=== PATIENT | female | born 1980 | race Caucasian/White ===

== ENCOUNTER 2016-04-16 10:34 | Emergency (ER) | payer OTHER ==
[2016-04-16 11:16] VITALS: BP 150/95
--- NOTE | 2016-04-16 12:34 | UC ---
Throat Pain/Nasal Carlos HPI - HPI Summary HPI Summary: THREE DAYS OF SORE THROAT FEVER, CONGESTION. DAUGHTER RAPID TEST POSITIVE FOR STREP. - History of Current Complaint Chief Complaint: UCRespiratory Stated Complaint: SORE THROAT Time Seen by Provider: 04/16/16 11:28 Hx Obtained From: Patient Hx Last Menstrual Period: 04/09/16 Onset/Duration: Gradual Onset, Lasting Days, Still Present Severity: Moderate Cough: None - Allergies/Home Medications Allergies/Adverse Reactions: Allergies Allergy/AdvReac Type Severity Reaction Status Date / Time No Known Allergies Allergy Verified 04/08/14 15:19 PMH/Surg Hx/FS Hx/Imm Hx Previously Healthy: Yes Endocrine History Of: Denies: Diabetes, Thyroid Disease Cardiovascular History Of: Denies: Cardiac Disorders, Hypertension Respiratory History Of: Denies: COPD, Asthma GI/ History Of: Denies: Ulcer - Surgical History Surgical History: None - Family History Known Family History: Positive: Other - DAUGHTER POSITIVE FOR STREP - Social History Occupation: Unemployed Lives: With Family Alcohol Use: None Substance Use Type: None Smoking Status (MU): Never Smoked Tobacco Review of Systems Constitutional: Fever Skin: Negative Eyes: Negative ENT: Sore Throat, Ear Ache Respiratory: Negative Cardiovascular: Negative Gastrointestinal: Negative Genitourinary: Negative Motor: Negative Neurovascular: Negative Musculoskeletal: Negative Neurological: Negative Psychological: Negative All Other Systems Reviewed And Are Negative: Yes Physical Exam Triage Information Reviewed: Yes Appearance: Well-Appearing, No Pain Distress, Well-Nourished Vital Signs: Initial Vital Signs Temp 99.9 F 04/16/16 11:12 Pulse 91 04/16/16 11:12 Resp 16 04/16/16 11:12 BP 150/95 04/16/16 11:12 Pulse Ox 99 04/16/16 11:12 Vital Signs Reviewed: Yes Eye Exam: Normal ENT: Positive: Hearing grossly normal, Pharyngeal erythema, TMs normal, Tonsillar swelling Dental Exam: Normal Neck exam: Normal Neck: Positive: Supple, Nontender Respiratory Exam: Normal Respiratory: Positive: Chest non-tender, Lungs clear, Normal breath sounds, No respiratory distress, No accessory muscle use Cardiovascular Exam: Normal Cardiovascular: Positive: RRR, No Murmur, Pulses Normal Abdominal Exam: Normal Abdomen Description: Positive: Nontender, No Organomegaly Musculoskeletal Exam: Normal Neurological Exam: Normal Psychological Exam: Normal Skin Exam: Normal Throat Pain/Nasal Course/Dx - Differential Dx/Diagnosis Differential Diagnosis/HQI/PQRI: Pharyngitis, Tonsillitis, URI Provider Diagnoses: TONSILLITIS Discharge - Discharge Plan Condition: Stable Disposition: HOME Prescriptions: Amoxicillin/Clavulanate TAB* [Augmentin TAB 875*] 875 mg PO BID #20 tab Patient Education Materials: Tonsillitis (ED) Referrals: [facility] [Outside] No Primary Care Phys,NOPCP [Primary Care Provider] -
== END 2016-04-16 12:30 | disposition home or self-care (01) ==
LOC: UCEAST 10:34
DX: J03.90 Acute tonsillitis, unspecified (principal)
CPT/HCPCS: 87651; 99212; G0463

== ENCOUNTER 2017-03-29 09:22 | Emergency (ER) | payer OTHER ==
[2017-03-29 09:34] VITALS: BP 138/91
--- NOTE | 2017-03-29 09:35 | UC ---
FLU HPI - HPI Summary HPI Summary: Pt presents with fever, sore throat, body aches, and tiredness that started yesterday. She tells me that two members of her household are sick with similar symptoms over the last few weeks. She has been taking tylenol for her symptoms. Denies cough, SOB, chest pain, abdominal pain, n/v/d/c. - History of Current Complaint Chief Complaint: UCGeneralIllness Stated Complaint: SORE THROAT FEVER CHILLS Time Seen by Provider: 03/29/17 09:35 Hx Obtained From: Patient Hx Last Menstrual Period: 03/10/17 Severity Currently: Moderate Severity Initially: Moderate Pain Intensity: 7 Pain Scale Used: 0-10 Numeric - Allergy/Home Medications Allergies/Adverse Reactions: Allergies Allergy/AdvReac Type Severity Reaction Status Date / Time No Known Allergies Allergy Verified 03/29/17 09:26 Home Medications: Home Medications NK [No Home Medications Reported] 03/29/17 [History Confirmed 03/29/17] PMH/Surg Hx/FS Hx/Imm Hx Previously Healthy: Yes - Surgical History Surgical History: Yes Surgery Procedure, Year, and Place: d/c - Family History Known Family History: Positive: Unknown, Other - DAUGHTER POSITIVE FOR STREP - Social History Occupation: Employed Full-time Lives: With Family Alcohol Use: None Substance Use Type: None Smoking Status (MU): Never Smoked Tobacco Review of Systems Constitutional: Fever, Fatigue, Other - Body aches Skin: Negative Eyes: Negative ENT: Sore Throat Respiratory: Negative Cardiovascular: Negative Gastrointestinal: Negative Neurological: Negative Psychological: Negative All Other Systems Reviewed And Are Negative: Yes Physical Exam Triage Information Reviewed: Yes Appearance: Well-Appearing, No Pain Distress, Well-Nourished Vital Signs: Initial Vital Signs Temp 101.2 F 03/29/17 09:30 Pulse 102 03/29/17 09:30 Resp 20 03/29/17 09:30 BP 138/91 03/29/17 09:30 Pulse Ox 100 03/29/17 09:30 Vital Signs Reviewed: Yes Eyes: Positive: Conjunctiva Clear. Negative: Conjunctiva Inflamed, Discharge ENT: Positive: Hearing grossly normal, Pharynx normal, TMs normal, Tonsillar swelling - 3+, Uvula midline. Negative: Pharyngeal erythema, Nasal congestion, Nasal drainage, TM bulging, TM dull, TM red, Tonsillar exudate, Muffled voice, Hoarse voice, Sinus tenderness Neck: Positive: Supple, Nontender, No Lymphadenopathy Respiratory: Positive: Chest non-tender, Lungs clear, Normal breath sounds, No respiratory distress, No accessory muscle use Cardiovascular: Positive: RRR, No Murmur, Pulses Normal Neurological: Positive: Alert Psychological: Positive: Age Appropriate Behavior Skin: Negative: rashes Flu Course/Dx - Course Course Of Treatment: Influenza Neg. Strep POC was invalid x2. Her symptoms appear to be viral in nature and I have advised her to continue with conservative care. If symptoms persist or worsen f/u with PCP - Differential Dx/Diagnosis Provider Diagnoses: tonsillitis Discharge - Discharge Plan Condition: Stable Disposition: HOME Patient Education Materials: Tonsillitis (ED) Referrals: Lolly Panda MD [Primary Care Provider] - Additional Instructions: If you develop a fever, shortness of breath, chest pain, new or worsening symptoms - please call your PCP or go to the ED. Your blood pressure was high at todays visit. Please see your primary provider within 4 weeks for recheck and re-evaluation. 1) May try tea with honey, throat lozenges, salt water rinses, and tylenol/ ibuprofen as needed for fever and general discomfort.
== END 2017-03-29 10:25 | disposition home or self-care (01) ==
LOC: UCEAST 09:22
DX: J03.90 Acute tonsillitis, unspecified (principal)
CPT/HCPCS: 87502; 99211; G0463

== ENCOUNTER 2017-07-07 13:59 | Emergency (ER) | payer OTHER ==
[2017-07-07 14:18] VITALS: BP 141/97
--- NOTE | 2017-07-07 14:43 | RAD ---
INDICATION: Right foot pain COMPARISON: None TECHNIQUE: AP, lateral, and oblique views were obtained. FINDINGS: There is an oblique and comminuted nondisplaced fracture of the proximal phalanx of the second toe. No other fractures are evident. There is soft tissue swelling the second toe. IMPRESSION: FRACTURE PROXIMAL PHALANX SECOND TOE
--- NOTE | 2017-07-07 16:41 | UC ---
Shimon Hickey Natalie, scribed for Fernando Hernandez MD on 07/07/17 at 1446 . Lower Extremity/Ankle HPI - HPI Summary HPI Summary: The patient is a 36 y/o F presenting to [facility] c/o possible break to her second toe on right foot yesterday afternoon s/p tripping over a metal bar on her deck. She has been having pain since this occurred. The pain is rated 2/10 in severity. No pmhx. - History of Current Complaint Chief Complaint: UCLowerExtremity Stated Complaint: TOE INJURY Time Seen by Provider: 07/07/17 14:16 Hx Obtained From: Patient Hx Last Menstrual Period: 03/10/17 Onset/Duration: Sudden Onset, Lasting Hours - starting yesterday afternoon, Still Present Severity Initially: Mild Severity Currently: Mild Pain Intensity: 2 Pain Scale Used: 0-10 Numeric Aggravating Factor(s): Nothing Alleviating Factor(s): Nothing - Allergies/Home Medications Allergies/Adverse Reactions: Allergies Allergy/AdvReac Type Severity Reaction Status Date / Time No Known Allergies Allergy Verified 07/07/17 14:18 Home Medications: Home Medications Ibuprofen 400 mg PO 07/07/17 [History] PMH/Surg Hx/FS Hx/Imm Hx Other Cardiovascular History: NEGATIVE: hypertension Other Respiratory History: NEGATIVE: asthma - Surgical History Surgical History: Yes Surgery Procedure, Year, and Place: d/c - Family History Known Family History: Positive: Other - DAUGHTER POSITIVE FOR STREP - Social History Alcohol Use: Rare Substance Use Type: None Smoking Status (MU): Never Smoked Tobacco Review of Systems Skin: Bruising - right foot Musculoskeletal: Other: - pain in second toe on right foot All Other Systems Reviewed And Are Negative: Yes Physical Exam - Summary Physical Exam Summary: VITAL SIGNS: Reviewed. GENERAL: Patient is a well-developed and nourished female who is lying comfortable in the stretcher. Patient is not in any acute respiratory distress. HEAD AND FACE: Normocephalic EYES: PERRLA, EOMI x 2. EARS: Hearing grossly intact. MOUTH: Oropharynx within normal limits. NECK: Supple, trachea is midline, no adenopathy, no JVD, no carotid bruit. CHEST: Symmetric, no tenderness at palpation LUNGS: Clear to auscultation bilaterally. No wheezing or crackles. CVS: Regular rate and rhythm, S1 and S2 present, no murmurs or gallops appreciated. ABDOMEN: Soft, non-tender. Bowel sounds are normal. No abdominal abnormal pulsations. EXTREMITIES: Full ROM in all major joints, no edema, no cyanosis or clubbing. Bruising to second digit on right foot. No deformity. Positive tenderness to palpation. NEURO: Alert and oriented x 3. No acute neurological deficits. Speech is normal and follows commands. SKIN: Dry and warm Triage Information Reviewed: Yes Vital Signs: Initial Vital Signs Temp 98.7 F 07/07/17 14:14 Pulse 77 07/07/17 14:14 Resp 18 07/07/17 14:14 BP 141/97 07/07/17 14:14 Pulse Ox 100 07/07/17 14:14 Vital Signs Reviewed: Yes Diagnostics - Radiology Foot XR Xray Interpretation: Positive (See Comments) - There is an oblique and comminuted nondisplaced fracture of the proximal phalanx of the second toe. No other fractures are evident. There is soft tissue swelling in the second toe. [facility] physician has reviewed this report. Radiology Interpretation Completed By: Radiologist Lower Extremity Course/Dx - Course Course Of Treatment: The patient is a 36 y/o F presenting to [facility] c/o possible break to her second toe on right foot yesterday s/p tripping over a metal bar on her deck. She has been having pain since this occurred. No pmhx. . The patient was found to have increased BP in UC. The patient will follow up with PCP for better control of BP. Foot XR is positive: There is an oblique and comminuted nondisplaced fracture of the proximal phalanx of the second toe. No other fractures are evident. There is soft tissue swelling in the second toe. The patient is diagnosed with second digit proximal phalanx fracture. The fracture will be taped, a surgical shoe will be placed, and she will be discharged with a follow up with Dr. Manning, orthopedics. I discussed all the findings and test results with the patient. Patient was instructed to return to the urgent care or go to ER immediately if any of the symptoms return or worsens. Plan of care was discussed with the patient, and patient understands and agrees. All questions were answered to patient satisfaction. There were no further complaints or concerns. - Differential Dx/Diagnosis Provider Diagnoses: footbsecond digit proximal phalanx fracture Discharge - Sign-Out/Discharge Documenting (check all that apply): Discharge/Admit/Transfer - Discharge Plan Condition: Stable Disposition: HOME Patient Education Materials: Toe Fracture (ED) Referrals: Rosetta Chi DO [Primary Care Provider] - Yannick Tony DO [Doctor of Osteopathy] - Additional Instructions: FOLLOW UP WITH YOUR PRIMARY CARE PROVIDER WITHIN ONE WEEK FOR HIGH BLOOD PRESSURE NOTED TODAY. RETURN TO URGENT CARE OR THE ED FOR ANY WORSENING OR NEW SYMPTOMS. - Billing Disposition and Condition Condition: STABLE Disposition: HOME The documentation as recorded by the Shimon coleman Natalie accurately reflects the service I personally performed and the decisions made by , Fernando Hernandez MD.
== END 2017-07-07 15:00 | disposition home or self-care (01) ==
LOC: UCEAST 13:59
DX: S92.514A Nondisplaced fracture of proximal phalanx of right lesser toe(s), initial encounter for closed fracture (principal); W22.8XXA Striking against or struck by other objects, initial encounter; Y93.9 Activity, unspecified; Y92.008 Other place in unspecified non-institutional (private) residence as the place of occurrence of the external cause
CPT/HCPCS: 99212; G0463